=== PATIENT | male | born 1935 | race Caucasian/White ===

== ENCOUNTER 2020-08-09 22:12 | Emergency (ER) | payer MEDICARE, OTHER ==
[~2020-08-09] VITALS: Ht 180.3 cm; Wt 86.4 kg
[2020-08-09 23:29] LABS: BASO # 0.1 10^3/uL (0.0-0.2); BASO % 0.5 % (0.0-1.0); EOS # 0.4 10^3/uL (0.0-0.5); EOS % 3.8 % (0.0-3.0); HEMATOCRIT 40.5 % (42.0-52.0); HEMOGLOBIN 12.9 g/dl (13.5-17.5); LYMPH # 0.9 10^3/uL (1.5-5.0); LYMPH % 9.8 % (24.0-44.0); MEAN CORPUSCULAR HEMOGLOBIN 28.9 pg (27.0-33.0); MEAN CORPUSCULAR HGB CONC 31.9 g/dl (32.0-36.5); MEAN CORPUSCULAR VOLUME 90.6 fl (80.0-96.0); MONO # 1.1 10^3/uL (0.0-0.8); MONO % 11.2 % (0.0-5.0); NEUTROPHILS # 7.2 10^3/uL (1.5-8.5); NEUTROPHILS % 74.4 % (36.0-66.0); PLATELET COUNT, AUTOMATED 126 10^3/uL (150-450); RED BLOOD COUNT 4.47 10^6/uL (4.30-6.10); WHITE BLOOD COUNT 9.6 10^3/uL (4.0-10.0)
[2020-08-09 23:54] LABS: CREATININE FOR GFR 1.39 MG/DL (0.70-1.30); GLOMERULAR FILTRATION RATE 51.7 (>35); POTASSIUM SERUM 4.2 MEQ/L (3.5-5.1)
[2020-08-10 00:33] LABS: APPEARANCE, URINE TURBID (CLEAR); BACTERIA, URINE AUTO 3+ (NEGATIVE); BILIRUBIN, URINE AUTO NEGATIVE (NEGATIVE); BLOOD, URINE BLOOD 1+ (NEGATIVE); COLOR, URINE YELLOW (YELLOW); GLUCOSE, URINE (UA) AUTO NEGATIVE (NEGATIVE); KETONE, URINE AUTO NEGATIVE (NEGATIVE); LEUKOCYTE ESTERASE, URINE AUTO 3+ (NEGATIVE); MUCUS, URINE SMALL (NEGATIVE); NITRITE, URINE AUTO POSITIVE (NEGATIVE); PROTEIN, URINE AUTO 3+ mg/dL (NEGATIVE); RBC, URINE AUTO 81 /HPF (0-3); SPECIFIC GRAVITY URINE AUTO 1.018 (1.002-1.035); SQUAMOUS EPITHELIAL CELL UR AU 0 /HPF (0-6); TRANSITIONAL EPITHELIAL AUTO 3 /HPF; TRIPLE PHOSPHATE CRYSTALS SMALL; UROBILINOGEN, URINE AUTO 0.2 mg/dL (0.0-2.0); WBC, URINE AUTO TNTC /HPF (0-3)
[2020-08-10] MEDS ORDERED: BACTRIM 160MG/800MG DS TAB PO ONE ×2 (00:45)
[2020-08-10] MEDS ORDERED: BACT800T5 PO (00:47)
[2020-08-10] MEDS ORDERED: NYSTATIN 100,000 UNITS/GM TOPICAL PWD 15 GM TOP STA (00:49)
[2020-08-10] MEDS ORDERED: NYST1POW9 TOP (00:51)
[2020-08-10 01:17] VITALS: BP 135/82
[2020-08-13] MEDS ORDERED: KEFL500C17 PO (18:18)
== END 2020-08-10 01:24 | disposition home or self-care (01) ==
LOC: M ED 22:12
DX: N30.90 Cystitis, unspecified without hematuria (principal); T83.198A Other mechanical complication of other urinary devices and implants, initial encounter; X58.XXXA Exposure to other specified factors, initial encounter; Y92.89 Other specified places as the place of occurrence of the external cause; E11.40 Type 2 diabetes mellitus with diabetic neuropathy, unspecified; I10 Essential (primary) hypertension; Z86.14 Personal history of Methicillin resistant Staphylococcus aureus infection; Z87.891 Personal history of nicotine dependence

== ENCOUNTER 2020-08-30 17:36 | Emergency (ER) | payer MEDICARE, OTHER ==
[~2020-08-30] VITALS: Ht 180.3 cm; Wt 88.6 kg
[~2020-08-30 17:36] MED LIST: BACT800T5 PO; CEFD1CAP8 PO; CEPH500C PO; CLEO300C2 PO; DOCU100C16 PO; ECOT81TA5 PO; EQ A1CRE3 TOP; FAMO20TA PO; GABA600T4 PO; GLUC4GMTAB PO; GLYB-147 PO; GLYB25TA PO; HYDR1OI; KEFL500C17 PO; LANTINJ4 SC; LISI-898; LISI-898 PO; LISI2.5T2 PO; LISI2.5T49 PO; MAGN400T5 PO; METF10004 PO; METF500T13 PO; MICO2CRE42 TOP; MULTCAP PO; NYST10OI TOP; NYST1POW9 TOP; RANI15TA PO; SIMV40TA20 PO; VITA-183 PO; VITA100067 PO; ZOCO80TA PO
[2020-08-30] MEDS ORDERED: DOCU100C16 (17:50)
--- OUTSIDE RECORDS SUMMARY | 2020-08-30 21:03 | CCD ---
Author Author [facility] Address Unknown Phone Unavailable Support Name Relationship Address Phone RE Next Of Kin Unknown Unavailable RAJI DOW Next Of Kin [id number] [place] [address] Re-disclosure Warning The records that you are about to access may contain information from federally-assisted alcohol or drug abuse programs. If such information is present, then the following federally mandated warning applies: This information has been disclosed to you from records protected by federal confidentiality rules (42 CFR part 2). The federal rules prohibit you from making any further disclosure of this information unless further disclosure is expressly permitted by the written consent of the person to whom it pertains or as otherwise permitted by 42 CFR part 2. A general authorization for the release of medical or other information is NOT sufficient for this purpose. The Federal rules restrict any use of the information to criminally investigate or prosecute any alcohol or drug abuse patient.The records that you are about to access may contain highly sensitive health information, the redisclosure of which is protected by Article 27-F of the [facility] Public Health law. If you continue you may have access to information: Regarding HIV / AIDS; Provided by facilities licensed or operated by the [facility] Office of Mental Health; or Provided by the [facility] Office for People With Developmental Disabilities. If such information is present, then the following [facility] mandated warning applies: This information has been disclosed to you from confidential records which are protected by state law. State law prohibits you from making any further disclosure of this information without the specific written consent of the person to whom it pertains, or as otherwise permitted by law. Any unauthorized further disclosure in violation of state law may result in a fine or fpc sentence or both. A general authorization for the release of medical or other information is NOT sufficient authorization for further disc losure. Medications Medication Brand Name Start Date Product Form Dose Route Admi nistrative Instructions Pharmacy Instructions Status Indications Reaction Description Data Source(s) Cephalexin 500 MG Oral Capsule CEPHALEXIN 08/13/2020 12:00:00 AM EST capsule 21 TAKE ONE CAPSULE BY MOUTH THREE TIMES A DAY TAKE ONE C APSULE BY MOUTH THREE TIMES A DAY SOLD: 08/14/2020 [facility] Sulfamethoxazole 800 MG / Trimethoprim 160 MG Oral Tab let 800-160 mg SULFAMETHOXAZOLE/TRIMETHOPRIM 08/11/2020 12:00:00 AM EST tablet 17 TAKE ONE TABLET BY MOUTH EVERY 12 HOURS TAKE ONE TABLET BY MOUTH EVERY 12 HOURS SOLD: 08/14/2020 [facility] Nystatin 100 UNT/MG Topical Powder 100,000 unit/gram [place] N 08/11/2020 12:00:00 AM EST powder 15 APPLY TO AFFECTED AREA(S) TWO TIMES A DAY APPLY TO AFFECTED AREA(S) TWO TIMES A DAY SOLD: 08/14/2020 [facility] Insurance Providers Payer name Policy type / Coverage type Policy ID Covered democrat ID Covered democrat's relationship to [place] Policy [place] Plan Information FOR LIFE [id number] MEDICARE [id number]
[2020-08-30 21:43] VITALS: BP 151/78
== END 2020-08-30 21:45 | disposition home or self-care (01) ==
LOC: M ED 17:36 → EDBD 17:36 → M ED 21:45
DX: T83.028A Displacement of other urinary catheter, initial encounter (principal); Y92.9 Unspecified place or not applicable; Y93.9 Activity, unspecified; E11.9 Type 2 diabetes mellitus without complications; Z79.4 Long term (current) use of insulin; Z79.899 Other long term (current) drug therapy

== ENCOUNTER 2021-01-26 02:39 | Emergency (ER) | payer MEDICARE, OTHER ==
[~2021-01-26] VITALS: Ht 177.8 cm; Wt 90.9 kg
[~2021-01-26 02:39] MED LIST changes: +DOCU100C16; +GLYB2.5T7 PO; -GLYB25TA PO
[2021-01-26 05:45] VITALS: BP 141/80
== END 2021-01-26 05:47 | disposition home or self-care (01) ==
LOC: M ED 02:39
DX: R10.9 Unspecified abdominal pain (principal); T83.098A Other mechanical complication of other urinary catheter, initial encounter; X58.XXXA Exposure to other specified factors, initial encounter; Y92.89 Other specified places as the place of occurrence of the external cause; E11.9 Type 2 diabetes mellitus without complications; I10 Essential (primary) hypertension; Z79.899 Other long term (current) drug therapy; Z79.4 Long term (current) use of insulin

== ENCOUNTER 2021-09-26 00:11 | Emergency (ER) | payer MEDICARE, OTHER ==
[~2021-09-26] VITALS: Ht 177.8 cm; Wt 90.9 kg
[~2021-09-26 00:11] MED LIST changes: -CEFD1CAP8 PO; +CEFD300C41 PO; -HYDR1OI; +HYDR28OI8; -LISI-898; -LISI-898 PO; -LISI2.5T2 PO; +LISI2.5T9 PO; +LISI5TAB11; +LISI5TAB11 PO
[2021-09-26] MEDS ORDERED: FAMO1TAB11 (00:20)
[2021-09-26] MEDS ORDERED: ALOG12.5 (00:20)
[2021-09-26] MEDS ORDERED: ZOCO80TA (00:20)
[2021-09-26 01:17] VITALS: BP 134/70
== END 2021-09-26 01:18 | disposition home or self-care (01) ==
LOC: M ED 00:11
DX: T83.198A Other mechanical complication of other urinary devices and implants, initial encounter (principal); I10 Essential (primary) hypertension; E11.9 Type 2 diabetes mellitus without complications; E78.5 Hyperlipidemia, unspecified

== ENCOUNTER 2022-01-30 14:26 | Emergency (ER) | payer MEDICARE, OTHER ==
[~2022-01-30] VITALS: Ht 180.3 cm; Wt 91.0 kg
[~2022-01-30 14:26] MED LIST changes: +ALOG12.5; +FAMO1TAB11; +ZOCO80TA
[2022-01-30 14:36] VITALS: BP 126/75
== END 2022-01-30 15:30 | disposition home or self-care (01) ==
LOC: M ED 14:26
DX: T83.198A Other mechanical complication of other urinary devices and implants, initial encounter (principal); I10 Essential (primary) hypertension; E11.9 Type 2 diabetes mellitus without complications; E78.5 Hyperlipidemia, unspecified; N40.0 Benign prostatic hyperplasia without lower urinary tract symptoms; Z79.4 Long term (current) use of insulin; Z79.899 Other long term (current) drug therapy

== ENCOUNTER 2022-11-29 14:18 | Emergency (ER) | payer MEDICARE, OTHER ==
[~2022-11-29] VITALS: Ht 177.8 cm; Wt 90.9 kg
[~2022-11-29 14:18] MED LIST changes: +HYDR28OI; -HYDR28OI8
[2022-11-29 15:48] VITALS: BP 122/71
== END 2022-11-29 17:06 | disposition home or self-care (01) ==
LOC: EDBD 14:18 → M ED 15:26
DX: R01.1 Cardiac murmur, unspecified (principal); T83.198A Other mechanical complication of other urinary devices and implants, initial encounter; E11.9 Type 2 diabetes mellitus without complications; I10 Essential (primary) hypertension; Z79.4 Long term (current) use of insulin; Z79.899 Other long term (current) drug therapy

== ENCOUNTER 2023-02-05 13:34 | Inpatient (IN) | payer MEDICARE, OTHER ==
[~2023-02-05] VITALS: Ht 180.3 cm; Wt 92.3 kg
[2023-02-05 14:30] LABS: BASO % 0.8 % (0.0-1.0); EOS # 0.5 10^3/uL (0.0-0.5); EOS % 9.7 % (0.0-3.0); HEMOGLOBIN 11.7 g/dl (13.5-17.5); LYMPH # 0.9 10^3/uL (1.5-5.0); LYMPH % 16.7 % (24.0-44.0); MEAN CORPUSCULAR HEMOGLOBIN 28.1 pg (27.0-33.0); MEAN CORPUSCULAR HGB CONC 31.6 g/dl (32.0-36.5); MEAN CORPUSCULAR VOLUME 88.7 fl (80.0-96.0); MONO # 0.6 10^3/uL (0.0-0.8); MONO % 11.6 % (2.0-8.0); NEUTROPHILS # 3.2 10^3/uL (1.5-8.5); NEUTROPHILS % 60.8 % (36.0-66.0); PLATELET COUNT, AUTOMATED 209 10^3/uL (150-450); RED BLOOD COUNT 4.17 10^6/uL (4.30-6.10); WHITE BLOOD COUNT 5.3 10^3/uL (4.0-10.0)
[2023-02-05 14:44] LABS: INR 0.98; PROTHROMBIN TIME 13.2 SECONDS (12.5-14.5)
[2023-02-05 14:45] LABS: PARTIAL THROMBOPLASTIN TIME 29.1 SECONDS (24.8-34.2)
[2023-02-05 15:04] LABS: ALBUMIN 3.6 G/DL (3.2-5.2); BILIRUBIN,DIRECT 0.3 MG/DL (<0.4); BILIRUBIN,TOTAL 0.8 MG/DL (0.3-1.2); CREATININE FOR GFR 1.39 MG/DL (0.70-1.30); GLOMERULAR FILTRATION RATE 51.5 (>35); POTASSIUM SERUM 4.3 MMOL/L (3.5-5.1); TOTAL PROTEIN 6.9 G/DL (5.7-8.2)
[2023-02-05] MEDS ORDERED: ISOVUE-370 76% 100ML VIAL As Ordered ONE (15:47)
[2023-02-05] MEDS ORDERED: GLUCAGON INJ 1MG VIAL SC PRN (18:20)
[2023-02-05] MEDS ORDERED: GLUCOSE 4GM CHEW TABLET PO PRN (18:20)
[2023-02-05] MEDS: MIRALAX *UNIT DOSE* 17GM PACKET PO SCH (20:04)
[2023-02-05] MEDS: SENOKOT S TAB PO SCH (20:04)
[2023-02-05] MEDS: FLEET ENEMA PR SCH ×2 (20:22→21:00)
[2023-02-05] MEDS ORDERED: INSULIN LISPRO (NovoLOG) PER UNIT SC SCH ×2 (21:00)
[2023-02-05] MEDS ORDERED: SENN8.6T28 PO (21:53)
[2023-02-05] MEDS ORDERED: VITMTA PO (21:53)
[2023-02-05] MEDS ORDERED: DEXT4TAB15 PO (21:53)
[2023-02-05] MEDS ORDERED: SIMV40TA20 PO (21:53)
[2023-02-05] MEDS ORDERED: TROS20TA3 PO (21:53)
[2023-02-05] MEDS ORDERED: DOCU100C16 PO (21:53)
[2023-02-05] MEDS ORDERED: FAMO20TA4 PO (21:53)
[2023-02-05] MEDS ORDERED: NESI12.5 PO (21:53)
[2023-02-05] MEDS ORDERED: HOME MED LIST COMPLETE! XX SCH (21:55)
[2023-02-05 22:10] VITALS: BP 155/72; TEMP 97.5; O2SAT 94
[2023-02-05] MEDS: ONDANSETRON 4MG 2ML VIAL IV PRN (23:37)
[2023-02-06] MEDS: D5W/0.45% SODIUM CHLORIDE 1,000 ML IV SCH ×3 (00:11→19:50)
[2023-02-06 05:24] VITALS: BP 152/78; TEMP 98.2; O2SAT 93
[2023-02-06] MEDS: INSULIN LISPRO (NovoLOG) PER UNIT SC SCH ×4 (05:49→18:00)
[2023-02-06] MEDS: HEPARIN SOD (PORCINE) 5000UNITS/ML 1ML VIAL/SYRINGE SC SCH ×3 (05:52→21:55)
[2023-02-06 06:32] LABS: HEMATOCRIT 36.7 % (42.0-52.0); HEMOGLOBIN 11.5 g/dl (13.5-17.5); MEAN CORPUSCULAR HEMOGLOBIN 27.9 pg (27.0-33.0); MEAN CORPUSCULAR HGB CONC 31.3 g/dl (32.0-36.5); MEAN CORPUSCULAR VOLUME 89.1 fl (80.0-96.0); PLATELET COUNT, AUTOMATED 198 10^3/uL (150-450); RED BLOOD COUNT 4.12 10^6/uL (4.30-6.10)
[2023-02-06 07:21] LABS: ALBUMIN 3.3 G/DL (3.2-5.2); BILIRUBIN,TOTAL 0.8 MG/DL (0.3-1.2); CALCIUM LEVEL 8.5 MG/DL (8.3-10.6); CREATININE FOR GFR 1.37 MG/DL (0.70-1.30); GLOMERULAR FILTRATION RATE 52.3 (>35); MAGNESIUM LEVEL 1.7 MG/DL (1.8-2.4); POTASSIUM SERUM 4.7 MMOL/L (3.5-5.1); TOTAL PROTEIN 6.2 G/DL (5.7-8.2)
[2023-02-06] MEDS ORDERED: INSULIN LISPRO (NovoLOG) PER UNIT SC SCH ×2 (07:30)
[2023-02-06] MEDS ORDERED: MAGNESIUM OXIDE 400MG TAB (MAG-OX) PO ONE (08:30)
[2023-02-06] MEDS: SIMVASTATIN 40 MG TAB PO SCH (09:32)
[2023-02-06] MEDS: GABAPENTIN 300 MG CAP PO SCH ×2 (09:32→21:56)
[2023-02-06] MEDS: BISACODYL 5MG TAB PO SCH (09:32)
[2023-02-06] MEDS: FAMOTIDINE 20 MG TAB PO SCH (09:33)
[2023-02-06] MEDS: FLEET ENEMA PR SCH ×4 (09:33→21:57)
[2023-02-06] MEDS: MIRALAX *UNIT DOSE* 17GM PACKET PO SCH ×2 (09:33→21:55)
[2023-02-06] MEDS: SENOKOT S TAB PO SCH ×2 (09:33→21:56)
[2023-02-06 10:23] VITALS: BP 97/65; TEMP 97.9; O2SAT 93
[2023-02-06 10:31] VITALS: BP 104/68
[2023-02-06 14:12] VITALS: BP 103/66; TEMP 98.8; O2SAT 94
[2023-02-06] MEDS: FLEET OIL RETENTION ENEMA PR SCH ×2 (15:33→21:57)
[2023-02-06] MEDS ORDERED: LEVEMIR (INSULIN DETEMIR) 1 UNITS/0.01ML SC SCH (21:00)
[2023-02-06 21:04] VITALS: BP 108/66; TEMP 96.6; O2SAT 94
[2023-02-07 06:00] VITALS: BP 110/53; TEMP 99.3; O2SAT 89
[2023-02-07] MEDS: INSULIN LISPRO (NovoLOG) PER UNIT SC SCH ×5 (06:00→23:40)
[2023-02-07] MEDS: DEXTROSE 50% 50ML SYRINGE IV PRN ×3 (06:09→16:48)
[2023-02-07] MEDS: D5W/0.45% SODIUM CHLORIDE 1,000 ML IV SCH ×2 (06:14→17:27)
[2023-02-07] MEDS: HEPARIN SOD (PORCINE) 5000UNITS/ML 1ML VIAL/SYRINGE SC SCH ×3 (06:34→22:02)
[2023-02-07 06:52] LABS: BASO % 0.3 % (0.0-1.0); EOS % 0.6 % (0.0-3.0); HEMOGLOBIN 10.1 g/dl (13.5-17.5); LYMPH # 0.5 10^3/uL (1.5-5.0); LYMPH % 6.9 % (24.0-44.0); MEAN CORPUSCULAR HEMOGLOBIN 28.1 pg (27.0-33.0); MEAN CORPUSCULAR HGB CONC 31.6 g/dl (32.0-36.5); MEAN CORPUSCULAR VOLUME 89.1 fl (80.0-96.0); MONO # 1.3 10^3/uL (0.0-0.8); MONO % 17.9 % (2.0-8.0); NEUTROPHILS # 5.3 10^3/uL (1.5-8.5); NEUTROPHILS % 74.2 % (36.0-66.0); PLATELET COUNT, AUTOMATED 184 10^3/uL (150-450); RED BLOOD COUNT 3.59 10^6/uL (4.30-6.10); WHITE BLOOD COUNT 7.1 10^3/uL (4.0-10.0)
[2023-02-07 07:11] LABS: CREATININE FOR GFR 1.96 MG/DL (0.70-1.30); GLOMERULAR FILTRATION RATE 34.6 (>35); MAGNESIUM LEVEL 1.8 MG/DL (1.8-2.4)
[2023-02-07] MEDS: GABAPENTIN 300 MG CAP PO SCH ×2 (10:19→22:02)
[2023-02-07] MEDS: MIRALAX *UNIT DOSE* 17GM PACKET PO SCH (10:19)
[2023-02-07] MEDS: BISACODYL 5MG TAB PO SCH (10:20)
[2023-02-07] MEDS: FLEET OIL RETENTION ENEMA PR SCH (10:20)
[2023-02-07] MEDS: FAMOTIDINE 20 MG TAB PO SCH (10:20)
[2023-02-07] MEDS: SIMVASTATIN 40 MG TAB PO SCH (10:20)
[2023-02-07] MEDS: SENOKOT S TAB PO SCH ×2 (10:20→22:01)
[2023-02-07] MEDS: FLEET ENEMA PR SCH (10:20)
[2023-02-07] MEDS: LACTULOSE 20GM/30ML SYRUP UDC PO SCH ×2 (13:34→22:02)
[2023-02-07 14:00] VITALS: BP 96/42; TEMP 99; O2SAT 92
[2023-02-07] MEDS: D10W/0.45% SODIUM CHLORIDE 1,000 ML IV SCH (18:32)
[2023-02-07 20:57] VITALS: BP 141/73; TEMP 98.1; O2SAT 94
[2023-02-08] MEDS: HEPARIN SOD (PORCINE) 5000UNITS/ML 1ML VIAL/SYRINGE SC SCH ×3 (05:55→21:09)
[2023-02-08] MEDS: INSULIN LISPRO (NovoLOG) PER UNIT SC SCH ×4 (05:55→23:42)
[2023-02-08 06:00] VITALS: BP 136/71; TEMP 97.9; O2SAT 94
[2023-02-08] MEDS: D10W/0.45% SODIUM CHLORIDE 1,000 ML IV SCH (06:37)
[2023-02-08 07:15] LABS: BASO % 0.4 % (0.0-1.0); EOS # 0.4 10^3/uL (0.0-0.5); EOS % 5.6 % (0.0-3.0); HEMATOCRIT 33.1 % (42.0-52.0); HEMOGLOBIN 10.3 g/dl (13.5-17.5); LYMPH # 0.9 10^3/uL (1.5-5.0); LYMPH % 11.6 % (24.0-44.0); MEAN CORPUSCULAR HEMOGLOBIN 27.7 pg (27.0-33.0); MEAN CORPUSCULAR HGB CONC 31.1 g/dl (32.0-36.5); MONO # 1.2 10^3/uL (0.0-0.8); MONO % 16.3 % (2.0-8.0); NEUTROPHILS # 4.8 10^3/uL (1.5-8.5); NEUTROPHILS % 65.8 % (36.0-66.0); PLATELET COUNT, AUTOMATED 200 10^3/uL (150-450); RED BLOOD COUNT 3.72 10^6/uL (4.30-6.10); WHITE BLOOD COUNT 7.3 10^3/uL (4.0-10.0)
[2023-02-08 07:38] LABS: CALCIUM LEVEL 8.1 MG/DL (8.3-10.6); CREATININE FOR GFR 1.85 MG/DL (0.70-1.30); MAGNESIUM LEVEL 1.9 MG/DL (1.8-2.4); POTASSIUM SERUM 4.3 MMOL/L (3.5-5.1)
[2023-02-08] MEDS: GABAPENTIN 300 MG CAP PO SCH ×2 (09:49→20:37)
[2023-02-08] MEDS: SENOKOT S TAB PO SCH ×2 (09:49→20:37)
[2023-02-08] MEDS: D5W/0.9% SODIUM CHLORIDE 1,000 ML IV SCH ×2 (09:49→21:09)
[2023-02-08] MEDS: FAMOTIDINE 20 MG TAB PO SCH (09:49)
[2023-02-08] MEDS: LACTULOSE 20GM/30ML SYRUP UDC PO SCH ×2 (09:49→20:36)
[2023-02-08] MEDS: BISACODYL 5MG TAB PO SCH (09:49)
[2023-02-08] MEDS: SIMVASTATIN 40 MG TAB PO SCH (09:49)
[2023-02-08] MEDS: ACETAMINOPHEN TAB 650MG DOSE (2X325MG) PO PRN (09:58)
[2023-02-08 14:00] VITALS: BP 132/69; TEMP 97.2; O2SAT 97
[2023-02-08] MEDS: NYSTATIN 100,000 UNITS/GM TOPICAL PWD 15GM TOP SCH ×2 (15:10→20:37)
[2023-02-08 21:05] VITALS: BP 123/73; TEMP 98.8; O2SAT 94
[2023-02-09 06:00] VITALS: BP 126/72; TEMP 97.9; O2SAT 94
[2023-02-09] MEDS: INSULIN LISPRO (NovoLOG) PER UNIT SC SCH (06:00)
[2023-02-09] MEDS: HEPARIN SOD (PORCINE) 5000UNITS/ML 1ML VIAL/SYRINGE SC SCH ×3 (06:20→20:08)
[2023-02-09 06:27] LABS: BASO % 0.5 % (0.0-1.0); EOS # 0.5 10^3/uL (0.0-0.5); EOS % 8.9 % (0.0-3.0); HEMATOCRIT 31.8 % (42.0-52.0); HEMOGLOBIN 10.1 g/dl (13.5-17.5); LYMPH # 0.8 10^3/uL (1.5-5.0); LYMPH % 12.8 % (24.0-44.0); MEAN CORPUSCULAR HEMOGLOBIN 28.2 pg (27.0-33.0); MEAN CORPUSCULAR HGB CONC 31.8 g/dl (32.0-36.5); MEAN CORPUSCULAR VOLUME 88.8 fl (80.0-96.0); MONO % 16.9 % (2.0-8.0); NEUTROPHILS # 3.6 10^3/uL (1.5-8.5); NEUTROPHILS % 60.6 % (36.0-66.0); PLATELET COUNT, AUTOMATED 192 10^3/uL (150-450); RED BLOOD COUNT 3.58 10^6/uL (4.30-6.10); WHITE BLOOD COUNT 5.9 10^3/uL (4.0-10.0)
[2023-02-09 06:52] LABS: CALCIUM LEVEL 7.7 MG/DL (8.3-10.6); CREATININE FOR GFR 1.61 MG/DL (0.70-1.30); GLOMERULAR FILTRATION RATE 43.4 (>35); MAGNESIUM LEVEL 1.8 MG/DL (1.8-2.4); POTASSIUM SERUM 4.1 MMOL/L (3.5-5.1)
[2023-02-09] MEDS: SIMVASTATIN 40 MG TAB PO SCH (09:53)
[2023-02-09] MEDS: SENOKOT S TAB PO SCH ×2 (09:53→20:09)
[2023-02-09] MEDS: GABAPENTIN 300 MG CAP PO SCH ×2 (09:53→20:09)
[2023-02-09] MEDS: LACTULOSE 20GM/30ML SYRUP UDC PO SCH ×2 (09:54→20:08)
[2023-02-09] MEDS: NYSTATIN 100,000 UNITS/GM TOPICAL PWD 15GM TOP SCH ×2 (09:54→20:09)
[2023-02-09] MEDS: FAMOTIDINE 20 MG TAB PO SCH (09:54)
[2023-02-09] MEDS: BISACODYL 5MG TAB PO SCH (09:54)
[2023-02-09 13:53] VITALS: BP 112/68; TEMP 98.8; O2SAT 96
[2023-02-09 21:14] VITALS: BP 118/62; TEMP 98.4; O2SAT 95
[2023-02-10 06:10] VITALS: BP 120/80; TEMP 97.9; O2SAT 92
[2023-02-10 06:11] LABS: BASO % 0.6 % (0.0-1.0); EOS # 0.4 10^3/uL (0.0-0.5); EOS % 8.3 % (0.0-3.0); HEMATOCRIT 32.4 % (42.0-52.0); HEMOGLOBIN 10.4 g/dl (13.5-17.5); LYMPH # 0.8 10^3/uL (1.5-5.0); LYMPH % 15.4 % (24.0-44.0); MEAN CORPUSCULAR HEMOGLOBIN 28.2 pg (27.0-33.0); MEAN CORPUSCULAR HGB CONC 32.1 g/dl (32.0-36.5); MEAN CORPUSCULAR VOLUME 87.8 fl (80.0-96.0); MONO # 0.8 10^3/uL (0.0-0.8); NEUTROPHILS # 3.2 10^3/uL (1.5-8.5); NEUTROPHILS % 60.3 % (36.0-66.0); PLATELET COUNT, AUTOMATED 222 10^3/uL (150-450); RED BLOOD COUNT 3.69 10^6/uL (4.30-6.10); WHITE BLOOD COUNT 5.3 10^3/uL (4.0-10.0)
[2023-02-10] MEDS: HEPARIN SOD (PORCINE) 5000UNITS/ML 1ML VIAL/SYRINGE SC SCH (06:16)
[2023-02-10 06:33] LABS: CALCIUM LEVEL 7.9 MG/DL (8.3-10.6); CREATININE FOR GFR 1.28 MG/DL (0.70-1.30); GLOMERULAR FILTRATION RATE 56.6 (>35); MAGNESIUM LEVEL 1.7 MG/DL (1.8-2.4); POTASSIUM SERUM 4.2 MMOL/L (3.5-5.1)
[2023-02-10] MEDS ORDERED: MAG SULF 1GM/100ML (MAG RUN) 1 GM in IV 1 EA IV ONE (08:00)
[2023-02-10] MEDS: SIMVASTATIN 40 MG TAB PO SCH (08:48)
[2023-02-10] MEDS: MAGNESIUM OXIDE 400MG TAB (MAG-OX) PO SCH (08:48)
[2023-02-10] MEDS: LACTULOSE 20GM/30ML SYRUP UDC PO SCH ×2 (08:48→20:25)
[2023-02-10] MEDS: SENOKOT S TAB PO SCH ×2 (08:48→20:25)
[2023-02-10] MEDS: GABAPENTIN 300 MG CAP PO SCH ×2 (08:48→20:25)
[2023-02-10] MEDS: BISACODYL 5MG TAB PO SCH (08:48)
[2023-02-10] MEDS: FAMOTIDINE 20 MG TAB PO SCH (08:49)
[2023-02-10] MEDS: NYSTATIN 100,000 UNITS/GM TOPICAL PWD 15GM TOP SCH ×2 (08:49→20:30)
[2023-02-10] MEDS: MOM 30ML SUSPENSION UDC PO SCH ×2 (09:00→20:25)
[2023-02-10 14:00] VITALS: BP 101/64; TEMP 97.5; O2SAT 91
[2023-02-10] MEDS ORDERED: ENOXAPARIN 40MG/0.4ML SYRINGE (J1650 PER 10MG) SC SCH (14:00)
[2023-02-10 20:13] VITALS: BP 95/65; TEMP 98.8; O2SAT 92
[2023-02-11] MEDS ORDERED: ENOXAPARIN 100MG/1ML SYRINGE (J1650 PER 10MG) SC SCH (03:00)
[2023-02-11 06:17] VITALS: BP 117/71; TEMP 98.4; O2SAT 93
[2023-02-11 06:27] LABS: BASO % 0.4 % (0.0-1.0); EOS # 0.3 10^3/uL (0.0-0.5); EOS % 5.5 % (0.0-3.0); HEMATOCRIT 32.1 % (42.0-52.0); HEMOGLOBIN 10.3 g/dl (13.5-17.5); LYMPH # 0.8 10^3/uL (1.5-5.0); LYMPH % 15.8 % (24.0-44.0); MEAN CORPUSCULAR HEMOGLOBIN 27.9 pg (27.0-33.0); MEAN CORPUSCULAR HGB CONC 32.1 g/dl (32.0-36.5); MONO # 0.9 10^3/uL (0.0-0.8); MONO % 17.7 % (2.0-8.0); NEUTROPHILS # 3.2 10^3/uL (1.5-8.5); NEUTROPHILS % 60.2 % (36.0-66.0); PLATELET COUNT, AUTOMATED 238 10^3/uL (150-450); RED BLOOD COUNT 3.69 10^6/uL (4.30-6.10); WHITE BLOOD COUNT 5.3 10^3/uL (4.0-10.0)
[2023-02-11 06:41] LABS: CREATININE FOR GFR 1.28 MG/DL (0.70-1.30); GLOMERULAR FILTRATION RATE 56.6 (>35); MAGNESIUM LEVEL 2.2 MG/DL (1.8-2.4); POTASSIUM SERUM 4.5 MMOL/L (3.5-5.1)
[2023-02-11] MEDS: MAGNESIUM OXIDE 400MG TAB (MAG-OX) PO SCH (08:33)
[2023-02-11] MEDS: GABAPENTIN 300 MG CAP PO SCH ×3 (08:33→21:55)
[2023-02-11] MEDS: FAMOTIDINE 20 MG TAB PO SCH (08:33)
[2023-02-11] MEDS: SENOKOT S TAB PO SCH ×2 (08:33→20:30)
[2023-02-11] MEDS: LACTULOSE 20GM/30ML SYRUP UDC PO SCH ×2 (08:33→20:31)
[2023-02-11] MEDS: SIMVASTATIN 40 MG TAB PO SCH (08:33)
[2023-02-11] MEDS: MOM 30ML SUSPENSION UDC PO SCH ×2 (08:33→20:30)
[2023-02-11] MEDS: BISACODYL 5MG TAB PO SCH (08:33)
[2023-02-11] MEDS: NYSTATIN 100,000 UNITS/GM TOPICAL PWD 15GM TOP SCH ×2 (08:34→20:31)
[2023-02-11] MEDS: ACETAMINOPHEN TAB 650MG DOSE (2X325MG) PO PRN (12:37)
[2023-02-11 14:00] VITALS: BP 117/70; TEMP 98.4; O2SAT 94
[2023-02-11] MEDS ORDERED: MORPHINE 2 MG/ML 1ML VIAL IV ONE ×2 (14:15→15:30)
[2023-02-11] MEDS ORDERED: ISOVUE-370 76% 100ML VIAL As Ordered ONE (15:54)
[2023-02-11] MEDS: PANTOPRAZOLE 40MG VIAL IV SCH (16:50)
[2023-02-11] MEDS ORDERED: MORPHINE 2 MG/ML 1ML VIAL IV PRN (17:30)
[2023-02-11] MEDS: D5W/0.9% SODIUM CHLORIDE 1,000 ML IV SCH (17:34)
[2023-02-11 18:47] LABS: BASO % 0.1 % (0.0-1.0); HEMATOCRIT 27.1 % (42.0-52.0); HEMOGLOBIN 8.7 g/dl (13.5-17.5); LYMPH # 0.4 10^3/uL (1.5-5.0); LYMPH % 5.6 % (24.0-44.0); MEAN CORPUSCULAR HEMOGLOBIN 28.3 pg (27.0-33.0); MEAN CORPUSCULAR HGB CONC 32.1 g/dl (32.0-36.5); MEAN CORPUSCULAR VOLUME 88.3 fl (80.0-96.0); MONO # 0.8 10^3/uL (0.0-0.8); NEUTROPHILS # 6.3 10^3/uL (1.5-8.5); NEUTROPHILS % 82.9 % (36.0-66.0); PLATELET COUNT, AUTOMATED 231 10^3/uL (150-450); RED BLOOD COUNT 3.07 10^6/uL (4.30-6.10); WHITE BLOOD COUNT 7.6 10^3/uL (4.0-10.0)
[2023-02-11 18:55] LABS: CALCIUM LEVEL 8.6 MG/DL (8.3-10.6); CREATININE FOR GFR 1.31 MG/DL (0.70-1.30); GLOMERULAR FILTRATION RATE 55.1 (>35); POTASSIUM SERUM 5.2 MMOL/L (3.5-5.1)
[2023-02-11] MEDS: PIPERACILLIN/TAZOBACTAM SOD 3.375 GM in D5W MINI-BAG PLUS 50 ML IV SCH (20:30)
[2023-02-11] MEDS ORDERED: SOD POLYSTYRENE SULFONATE SUSP 15GM 60ML UD PO ONE (20:35)
[2023-02-11 20:58] VITALS: BP 117/71; TEMP 98.4; O2SAT 93
[2023-02-12] VITALS (13 sets, daily range): BP systolic 106–139; BP diastolic 53–91; TEMP 98.1–99.3; O2SAT 89–94
[2023-02-12 00:56] LABS: HEMATOCRIT 27.6 % (42.0-52.0); HEMOGLOBIN 8.8 g/dl (13.5-17.5)
[2023-02-12 01:10] LABS: CALCIUM LEVEL 8.8 MG/DL (8.3-10.6); CREATININE FOR GFR 1.47 MG/DL (0.70-1.30); GLOMERULAR FILTRATION RATE 48.2 (>35); POTASSIUM SERUM 5.2 MMOL/L (3.5-5.1)
[2023-02-12] MEDS: PIPERACILLIN/TAZOBACTAM SOD 3.375 GM in D5W MINI-BAG PLUS 50 ML IV SCH ×3 (02:22→13:11)
[2023-02-12 05:53] LABS: BASO % 0.3 % (0.0-1.0); EOS % 0.1 % (0.0-3.0); HEMATOCRIT 26.4 % (42.0-52.0); HEMOGLOBIN 8.4 g/dl (13.5-17.5); LYMPH # 0.8 10^3/uL (1.5-5.0); LYMPH % 9.7 % (24.0-44.0); MEAN CORPUSCULAR HEMOGLOBIN 28.2 pg (27.0-33.0); MEAN CORPUSCULAR HGB CONC 31.8 g/dl (32.0-36.5); MEAN CORPUSCULAR VOLUME 88.6 fl (80.0-96.0); MONO # 1.4 10^3/uL (0.0-0.8); MONO % 17.5 % (2.0-8.0); NEUTROPHILS # 5.7 10^3/uL (1.5-8.5); NEUTROPHILS % 71.9 % (36.0-66.0); PLATELET COUNT, AUTOMATED 252 10^3/uL (150-450); RED BLOOD COUNT 2.98 10^6/uL (4.30-6.10); WHITE BLOOD COUNT 7.9 10^3/uL (4.0-10.0)
[2023-02-12 06:10] LABS: CALCIUM LEVEL 8.5 MG/DL (8.3-10.6); CREATININE FOR GFR 1.54 MG/DL (0.70-1.30); GLOMERULAR FILTRATION RATE 45.7 (>35); MAGNESIUM LEVEL 2.4 MG/DL (1.8-2.4)
[2023-02-12 06:56] LABS: ALBUMIN 2.6 G/DL (3.2-5.2); BILIRUBIN,TOTAL 0.6 MG/DL (0.3-1.2); TOTAL PROTEIN 5.7 G/DL (5.7-8.2)
[2023-02-12] MEDS: D5W/0.9% SODIUM CHLORIDE 1,000 ML IV SCH (07:52)
[2023-02-12] MEDS: METOCLOPRAMIDE INJ 10MG/2ML VIAL IV SCH ×3 (07:52→21:02)
[2023-02-12] MEDS: FAMOTIDINE 20 MG TAB PO SCH (08:27)
[2023-02-12] MEDS: GABAPENTIN 300 MG CAP PO SCH (08:27)
[2023-02-12] MEDS: BISACODYL 5MG TAB PO SCH (08:28)
[2023-02-12] MEDS ORDERED: NS 1,000 ML IV ONE (08:45)
[2023-02-12] MEDS ORDERED: LR 1,000 ML IV SCH (08:45)
[2023-02-12] MEDS: MOM 30ML SUSPENSION UDC PO SCH ×2 (09:14→21:03)
[2023-02-12] MEDS: SENOKOT S TAB PO SCH ×2 (09:15→21:03)
[2023-02-12] MEDS: LACTULOSE 20GM/30ML SYRUP UDC PO SCH ×2 (09:15→21:03)
[2023-02-12] MEDS: NYSTATIN 100,000 UNITS/GM TOPICAL PWD 15GM TOP SCH ×2 (09:15→21:04)
[2023-02-12 13:01] LABS: HEMATOCRIT 25.5 % (42.0-52.0); HEMOGLOBIN 8.1 g/dl (13.5-17.5)
[2023-02-12 15:28] LABS: ABG BASE EXCESS 5.2 (-2.0-2.0); ABG HCO3 28.4 MMOL/L (22.0-26.0); ABG O2 SATURATION 91.5 % (95.0-99.0); ABG PARTIAL PRESSURE CO2 35.9 mmHg (35.0-45.0); ABG PARTIAL PRESSURE O2 56.3 mmHg (75.0-100.0); ABG STANDARD HCO3 29.1 MMOL/L. (22.0-26.0); ABG TOTAL CO2 29.5 MMOL/L (23.0-31.0); ABG pH (ARTERIAL) 7.516 UNITS (7.350-7.450)
[2023-02-12] MEDS ORDERED: FUROSEMIDE 40MG/4ML VIAL IV ONE (15:55)
[2023-02-12] MEDS: PANTOPRAZOLE 40MG VIAL IV SCH (16:11)
[2023-02-12] MEDS: PIPERACILLIN/TAZOBACTAM SOD 2.25 GM in D5W MINI-BAG PLUS 50 ML IV SCH (21:02)
[2023-02-13 00:40] VITALS: BP 128/75; TEMP 99.1; O2SAT 92
[2023-02-13 02:00] LABS: CALCIUM LEVEL 7.4 MG/DL (8.3-10.6); CREATININE FOR GFR 1.66 MG/DL (0.70-1.30); GLOMERULAR FILTRATION RATE 41.9 (>35); POTASSIUM SERUM 4.3 MMOL/L (3.5-5.1)
[2023-02-13] MEDS: METOCLOPRAMIDE INJ 10MG/2ML VIAL IV SCH ×4 (02:14→21:32)
[2023-02-13] MEDS: PIPERACILLIN/TAZOBACTAM SOD 2.25 GM in D5W MINI-BAG PLUS 50 ML IV SCH ×4 (02:14→21:10)
[2023-02-13 02:29] LABS: BASO % 0.5 % (0.0-1.0); EOS # 0.1 10^3/uL (0.0-0.5); EOS % 1.1 % (0.0-3.0); HEMOGLOBIN 9.1 g/dl (13.5-17.5); LYMPH % 11.4 % (24.0-44.0); MEAN CORPUSCULAR HEMOGLOBIN 28.2 pg (27.0-33.0); MEAN CORPUSCULAR HGB CONC 32.5 g/dl (32.0-36.5); MEAN CORPUSCULAR VOLUME 86.7 fl (80.0-96.0); MONO # 1.4 10^3/uL (0.0-0.8); MONO % 16.7 % (2.0-8.0); NEUTROPHILS # 5.7 10^3/uL (1.5-8.5); NEUTROPHILS % 68.9 % (36.0-66.0); PLATELET COUNT, AUTOMATED 222 10^3/uL (150-450); RED BLOOD COUNT 3.23 10^6/uL (4.30-6.10); WHITE BLOOD COUNT 8.3 10^3/uL (4.0-10.0)
[2023-02-13 06:53] LABS: CALCIUM LEVEL 8.1 MG/DL (8.3-10.6); CREATININE FOR GFR 1.67 MG/DL (0.70-1.30); GLOMERULAR FILTRATION RATE 41.6 (>35); MAGNESIUM LEVEL 2.3 MG/DL (1.8-2.4); POTASSIUM SERUM 4.2 MMOL/L (3.5-5.1)
[2023-02-13] MEDS: MOM 30ML SUSPENSION UDC PO SCH ×2 (09:46→21:31)
[2023-02-13] MEDS: BISACODYL 5MG TAB PO SCH (09:47)
[2023-02-13] MEDS: SENOKOT S TAB PO SCH ×2 (09:47→21:31)
[2023-02-13] MEDS: NYSTATIN 100,000 UNITS/GM TOPICAL PWD 15GM TOP SCH ×2 (09:47→21:32)
[2023-02-13] MEDS: LACTULOSE 20GM/30ML SYRUP UDC PO SCH ×2 (09:47→21:31)
[2023-02-13 14:00] VITALS: BP 122/67; TEMP 97.3; O2SAT 99
[2023-02-13] MEDS: INSULIN LISPRO (NovoLOG) PER UNIT SC SCH (18:00)
[2023-02-13] MEDS ORDERED: FAT EMULSION IV 250 ML IV ONE ×2 (18:00)
[2023-02-13] MEDS ORDERED: MULTIVITAMIN -ADULT INJECTION 10 ML, ZINC/COPPER/MANGANESE/SELENIUM 1 ML in AMINO AC/EL... IV SCH (18:00)
[2023-02-13] MEDS: PANTOPRAZOLE 40MG VIAL IV SCH (18:01)
[2023-02-13 21:25] VITALS: BP 127/75; TEMP 96.8; O2SAT 94
[2023-02-13] MEDS: AMINO AC/ELECTROLYTE/DEX/CALC 1,000 ML IV SCH (22:08)
[2023-02-14] MEDS: INSULIN LISPRO (NovoLOG) PER UNIT SC SCH ×4 (00:10→18:24)
[2023-02-14] MEDS: PIPERACILLIN/TAZOBACTAM SOD 2.25 GM in D5W MINI-BAG PLUS 50 ML IV SCH ×4 (01:56→20:49)
[2023-02-14] MEDS: METOCLOPRAMIDE INJ 10MG/2ML VIAL IV SCH ×4 (01:56→20:49)
[2023-02-14 06:00] VITALS: BP 133/73; TEMP 98.8; O2SAT 94
[2023-02-14 06:49] LABS: MAGNESIUM LEVEL 2.2 MG/DL (1.8-2.4)
[2023-02-14] MEDS: AMINO AC/ELECTROLYTE/DEX/CALC 1,000 ML IV SCH ×2 (07:20→19:00)
[2023-02-14 07:47] LABS: CALCIUM LEVEL 8.2 MG/DL (8.3-10.6); CREATININE FOR GFR 1.44 MG/DL (0.70-1.30); GLOMERULAR FILTRATION RATE 49.4 (>35)
[2023-02-14] MEDS ORDERED: MAGNESIUM CITRATE 300ML BTL PO ONE (08:20)
[2023-02-14] MEDS: MOM 30ML SUSPENSION UDC PO SCH ×2 (09:00→22:13)
[2023-02-14] MEDS: LACTULOSE 20GM/30ML SYRUP UDC PO SCH ×2 (09:00→22:13)
[2023-02-14] MEDS: SENOKOT S TAB PO SCH ×2 (09:00→22:13)
[2023-02-14] MEDS: BISACODYL 5MG TAB PO SCH (09:00)
[2023-02-14] MEDS: NYSTATIN 100,000 UNITS/GM TOPICAL PWD 15GM TOP SCH ×2 (09:00→22:14)
[2023-02-14] MEDS: ONDANSETRON 4MG 2ML VIAL IV PRN (10:46)
[2023-02-14 15:00] VITALS: BP 129/65; TEMP 101.8; O2SAT 93
[2023-02-14 16:33] LABS: BASO % 0.3 % (0.0-1.0); EOS # 0.1 10^3/uL (0.0-0.5); EOS % 1.5 % (0.0-3.0); HEMATOCRIT 31.8 % (42.0-52.0); HEMOGLOBIN 10.1 g/dl (13.5-17.5); LYMPH # 0.5 10^3/uL (1.5-5.0); LYMPH % 8.5 % (24.0-44.0); MEAN CORPUSCULAR HEMOGLOBIN 28.1 pg (27.0-33.0); MEAN CORPUSCULAR HGB CONC 31.8 g/dl (32.0-36.5); MEAN CORPUSCULAR VOLUME 88.6 fl (80.0-96.0); MONO # 1.1 10^3/uL (0.0-0.8); MONO % 18.1 % (2.0-8.0); NEUTROPHILS # 4.2 10^3/uL (1.5-8.5); NEUTROPHILS % 68.8 % (36.0-66.0); PLATELET COUNT, AUTOMATED 255 10^3/uL (150-450); RED BLOOD COUNT 3.59 10^6/uL (4.30-6.10); WHITE BLOOD COUNT 6.1 10^3/uL (4.0-10.0)
[2023-02-14] MEDS: PANTOPRAZOLE 40MG VIAL IV SCH (16:49)
[2023-02-14 17:12] VITALS: TEMP 100.2; O2SAT 93
[2023-02-14] MEDS ORDERED: FAT EMULSION IV 250 ML IV ONE (18:00)
[2023-02-14 22:00] VITALS: BP 132/66; TEMP 99.7; O2SAT 94
[2023-02-15] MEDS: INSULIN LISPRO (NovoLOG) PER UNIT SC SCH ×4 (00:20→18:56)
[2023-02-15] MEDS: METOCLOPRAMIDE INJ 10MG/2ML VIAL IV SCH ×4 (02:17→18:34)
[2023-02-15] MEDS: PIPERACILLIN/TAZOBACTAM SOD 2.25 GM in D5W MINI-BAG PLUS 50 ML IV SCH (02:17)
[2023-02-15 06:00] VITALS: BP 148/85; TEMP 98.2; O2SAT 95
[2023-02-15 06:27] LABS: BASO % 0.5 % (0.0-1.0); EOS # 0.1 10^3/uL (0.0-0.5); EOS % 1.5 % (0.0-3.0); HEMATOCRIT 29.7 % (42.0-52.0); HEMOGLOBIN 9.5 g/dl (13.5-17.5); LYMPH # 0.6 10^3/uL (1.5-5.0); LYMPH % 9.4 % (24.0-44.0); MEAN CORPUSCULAR HEMOGLOBIN 28.4 pg (27.0-33.0); MEAN CORPUSCULAR VOLUME 88.7 fl (80.0-96.0); MONO # 1.1 10^3/uL (0.0-0.8); MONO % 18.3 % (2.0-8.0); NEUTROPHILS % 67.4 % (36.0-66.0); PLATELET COUNT, AUTOMATED 232 10^3/uL (150-450); RED BLOOD COUNT 3.35 10^6/uL (4.30-6.10); WHITE BLOOD COUNT 5.9 10^3/uL (4.0-10.0)
[2023-02-15] MEDS: AMINO AC/ELECTROLYTE/DEX/CALC 1,000 ML IV SCH ×2 (06:43→18:36)
[2023-02-15 06:58] LABS: CALCIUM LEVEL 8.1 MG/DL (8.3-10.6); CREATININE FOR GFR 1.29 MG/DL (0.70-1.30); GLOMERULAR FILTRATION RATE 56.1 (>35); POTASSIUM SERUM 4.1 MMOL/L (3.5-5.1)
[2023-02-15] MEDS: LACTULOSE 20GM/30ML SYRUP UDC PO SCH ×2 (09:37→20:56)
[2023-02-15] MEDS: BISACODYL 5MG TAB PO SCH (09:37)
[2023-02-15] MEDS: MOM 30ML SUSPENSION UDC PO SCH ×2 (09:37→20:56)
[2023-02-15] MEDS: PIPERACILLIN/TAZOBACTAM SOD 3.375 GM in D5W MINI-BAG PLUS 50 ML IV SCH ×3 (09:37→18:35)
[2023-02-15] MEDS: SENOKOT S TAB PO SCH ×2 (09:38→20:56)
[2023-02-15] MEDS: NYSTATIN 100,000 UNITS/GM TOPICAL PWD 15GM TOP SCH ×2 (09:38→20:56)
[2023-02-15 14:00] VITALS: BP 112/60; TEMP 98.2; O2SAT 98
[2023-02-15] MEDS ORDERED: FAT EMULSION IV 250 ML IV ONE (18:00)
[2023-02-15] MEDS: PANTOPRAZOLE 40MG VIAL IV SCH (18:34)
[2023-02-15 21:37] VITALS: BP 96/44; TEMP 98.8; O2SAT 95
[2023-02-15] MEDS ORDERED: NS 500 ML IV ONE (22:10)
[2023-02-15 23:04] VITALS: BP 106/64
[2023-02-16] MEDS: INSULIN LISPRO (NovoLOG) PER UNIT SC SCH ×3 (00:28→12:21)
[2023-02-16] MEDS: PIPERACILLIN/TAZOBACTAM SOD 3.375 GM in D5W MINI-BAG PLUS 50 ML IV SCH ×4 (02:28→21:49)
[2023-02-16] MEDS: METOCLOPRAMIDE INJ 10MG/2ML VIAL IV SCH ×4 (02:28→21:49)
[2023-02-16 06:09] LABS: BASO % 0.5 % (0.0-1.0); EOS # 0.2 10^3/uL (0.0-0.5); EOS % 3.3 % (0.0-3.0); HEMATOCRIT 30.6 % (42.0-52.0); HEMOGLOBIN 9.6 g/dl (13.5-17.5); LYMPH # 0.7 10^3/uL (1.5-5.0); LYMPH % 11.1 % (24.0-44.0); MEAN CORPUSCULAR HEMOGLOBIN 27.7 pg (27.0-33.0); MEAN CORPUSCULAR HGB CONC 31.4 g/dl (32.0-36.5); MEAN CORPUSCULAR VOLUME 88.2 fl (80.0-96.0); MONO % 17.1 % (2.0-8.0); NEUTROPHILS % 65.8 % (36.0-66.0); PLATELET COUNT, AUTOMATED 230 10^3/uL (150-450); RED BLOOD COUNT 3.47 10^6/uL (4.30-6.10)
[2023-02-16 06:15] LABS: CALCIUM LEVEL 7.7 MG/DL (8.3-10.6); CREATININE FOR GFR 1.26 MG/DL (0.70-1.30); GLOMERULAR FILTRATION RATE 57.6 (>35); POTASSIUM SERUM 3.9 MMOL/L (3.5-5.1)
[2023-02-16] MEDS: LACTULOSE 20GM/30ML SYRUP UDC PO SCH ×2 (08:53→21:48)
[2023-02-16] MEDS: BISACODYL 5MG TAB PO SCH (08:53)
[2023-02-16] MEDS: MOM 30ML SUSPENSION UDC PO SCH ×2 (08:53→21:48)
[2023-02-16] MEDS: AMINO AC/ELECTROLYTE/DEX/CALC 1,000 ML IV SCH ×2 (08:54→21:37)
[2023-02-16] MEDS: SENOKOT S TAB PO SCH ×2 (08:54→21:49)
[2023-02-16] MEDS: NYSTATIN 100,000 UNITS/GM TOPICAL PWD 15GM TOP SCH ×2 (08:54→21:50)
[2023-02-16] MEDS: GABAPENTIN 300 MG CAP PO SCH ×2 (09:45→21:49)
[2023-02-16] MEDS: SIMVASTATIN 40 MG TAB PO SCH (09:45)
[2023-02-16 14:00] VITALS: BP 128/80; TEMP 97.9; O2SAT 97
[2023-02-16] MEDS: PANTOPRAZOLE 40MG VIAL IV SCH (17:31)
[2023-02-16] MEDS ORDERED: FAT EMULSION IV 250 ML IV ONE (18:00)
[2023-02-16 21:25] VITALS: BP 136/76; TEMP 97.9; O2SAT 96
[2023-02-17] MEDS: INSULIN LISPRO (NovoLOG) PER UNIT SC SCH ×4 (00:40→17:24)
[2023-02-17] MEDS: PIPERACILLIN/TAZOBACTAM SOD 3.375 GM in D5W MINI-BAG PLUS 50 ML IV SCH ×4 (03:03→22:18)
[2023-02-17] MEDS: METOCLOPRAMIDE INJ 10MG/2ML VIAL IV SCH ×4 (03:03→22:18)
[2023-02-17 06:19] VITALS: BP 132/76; TEMP 98.2; O2SAT 95
[2023-02-17 07:33] LABS: BASO % 0.4 % (0.0-1.0); EOS # 0.3 10^3/uL (0.0-0.5); HEMATOCRIT 31.5 % (42.0-52.0); HEMOGLOBIN 10.1 g/dl (13.5-17.5); LYMPH # 0.5 10^3/uL (1.5-5.0); LYMPH % 7.8 % (24.0-44.0); MEAN CORPUSCULAR HEMOGLOBIN 28.5 pg (27.0-33.0); MEAN CORPUSCULAR HGB CONC 32.1 g/dl (32.0-36.5); MEAN CORPUSCULAR VOLUME 88.7 fl (80.0-96.0); MONO # 0.8 10^3/uL (0.0-0.8); MONO % 11.1 % (2.0-8.0); NEUTROPHILS # 5.2 10^3/uL (1.5-8.5); NEUTROPHILS % 75.3 % (36.0-66.0); PLATELET COUNT, AUTOMATED 228 10^3/uL (150-450); RED BLOOD COUNT 3.55 10^6/uL (4.30-6.10); WHITE BLOOD COUNT 6.9 10^3/uL (4.0-10.0)
[2023-02-17] MEDS: MOM 30ML SUSPENSION UDC PO SCH ×2 (08:15→22:18)
[2023-02-17] MEDS: LACTULOSE 20GM/30ML SYRUP UDC PO SCH ×2 (08:15→22:19)
[2023-02-17] MEDS: GABAPENTIN 300 MG CAP PO SCH ×2 (08:19→21:00)
[2023-02-17] MEDS: BISACODYL 5MG TAB PO SCH (08:19)
[2023-02-17] MEDS: SENOKOT S TAB PO SCH ×2 (08:19→22:18)
[2023-02-17] MEDS: SIMVASTATIN 40 MG TAB PO SCH (08:19)
[2023-02-17] MEDS: NYSTATIN 100,000 UNITS/GM TOPICAL PWD 15GM TOP SCH ×2 (08:19→22:19)
[2023-02-17 08:22] LABS: CALCIUM LEVEL 8.5 MG/DL (8.3-10.6); CREATININE FOR GFR 1.32 MG/DL (0.70-1.30); GLOMERULAR FILTRATION RATE 54.6 (>35); POTASSIUM SERUM 4.4 MMOL/L (3.5-5.1)
[2023-02-17] MEDS: AMINO AC/ELECTROLYTE/DEX/CALC 1,000 ML IV SCH ×2 (11:01→23:52)
[2023-02-17 11:51] LABS: HEMOGLOBIN A1c 6.5 % (4.0-6.0)
[2023-02-17] MEDS ORDERED: SODIUM CHLORIDE 3% 240 ML IV SCH (13:00)
[2023-02-17] MEDS: SIMETHICONE 80MG CHEW TAB PO SCH ×3 (13:52→22:18)
[2023-02-17 14:00] VITALS: BP 152/85; TEMP 97.7; O2SAT 96
[2023-02-17] MEDS: PANTOPRAZOLE 40MG VIAL IV SCH (17:23)
[2023-02-17] MEDS ORDERED: FAT EMULSION IV 250 ML IV ONE (18:00)
[2023-02-17 18:16] LABS: OSMOLALITY URINE 332 MOSM/KG (50-1400)
[2023-02-17 18:51] LABS: SODIUM,RANDOM URINE < 10 MMOL/L
[2023-02-17 19:25] LABS: CALCIUM LEVEL 7.7 MG/DL (8.3-10.6); CREATININE FOR GFR 1.26 MG/DL (0.70-1.30); GLOMERULAR FILTRATION RATE 57.6 (>35); POTASSIUM SERUM 4.5 MMOL/L (3.5-5.1)
[2023-02-17 22:00] VITALS: BP 147/85; TEMP 97.5; O2SAT 97
[2023-02-17 22:57] LABS: CALCIUM LEVEL 7.7 MG/DL (8.3-10.6); CREATININE FOR GFR 1.24 MG/DL (0.70-1.30); GLOMERULAR FILTRATION RATE 58.7 (>35); POTASSIUM SERUM 4.4 MMOL/L (3.5-5.1)
[2023-02-18] MEDS: INSULIN LISPRO (NovoLOG) PER UNIT SC SCH ×4 (01:15→18:00)
[2023-02-18] MEDS: METOCLOPRAMIDE INJ 10MG/2ML VIAL IV SCH ×3 (02:27→15:44)
[2023-02-18 06:00] VITALS: BP 144/85; TEMP 98.4; O2SAT 92
[2023-02-18 06:12] LABS: BASO % 0.5 % (0.0-1.0); EOS # 0.2 10^3/uL (0.0-0.5); EOS % 2.3 % (0.0-3.0); HEMATOCRIT 33.3 % (42.0-52.0); HEMOGLOBIN 10.5 g/dl (13.5-17.5); LYMPH # 0.6 10^3/uL (1.5-5.0); LYMPH % 7.4 % (24.0-44.0); MEAN CORPUSCULAR HEMOGLOBIN 27.9 pg (27.0-33.0); MEAN CORPUSCULAR HGB CONC 31.5 g/dl (32.0-36.5); MEAN CORPUSCULAR VOLUME 88.3 fl (80.0-96.0); MONO # 0.9 10^3/uL (0.0-0.8); MONO % 10.6 % (2.0-8.0); NEUTROPHILS # 6.6 10^3/uL (1.5-8.5); NEUTROPHILS % 77.8 % (36.0-66.0); PLATELET COUNT, AUTOMATED 258 10^3/uL (150-450); RED BLOOD COUNT 3.77 10^6/uL (4.30-6.10); WHITE BLOOD COUNT 8.4 10^3/uL (4.0-10.0)
[2023-02-18 06:40] LABS: CALCIUM LEVEL 7.9 MG/DL (8.3-10.6); CREATININE FOR GFR 1.25 MG/DL (0.70-1.30); GLOMERULAR FILTRATION RATE 58.2 (>35); POTASSIUM SERUM 4.6 MMOL/L (3.5-5.1)
[2023-02-18] MEDS: BISACODYL 5MG TAB PO SCH (08:02)
[2023-02-18] MEDS: MOM 30ML SUSPENSION UDC PO SCH (08:02)
[2023-02-18] MEDS: SIMETHICONE 80MG CHEW TAB PO SCH ×3 (08:02→15:44)
[2023-02-18] MEDS: GABAPENTIN 300 MG CAP PO SCH (08:02)
[2023-02-18] MEDS: SIMVASTATIN 40 MG TAB PO SCH (08:02)
[2023-02-18] MEDS: LACTULOSE 20GM/30ML SYRUP UDC PO SCH (08:02)
[2023-02-18] MEDS: SENOKOT S TAB PO SCH (08:02)
[2023-02-18] MEDS: NYSTATIN 100,000 UNITS/GM TOPICAL PWD 15GM TOP SCH (08:04)
[2023-02-18] MEDS ORDERED: FUROSEMIDE 40MG/4ML VIAL IV ONE (10:55)
[2023-02-18] MEDS ORDERED: SODIUM CHLORIDE 3% 500 ML IV SCH (12:00)
[2023-02-18] MEDS ORDERED: LIDOCAINE 1% MDV 20ML VIAL As Ordered ONE (12:14)
[2023-02-18 14:00] VITALS: BP 135/79; TEMP 97.5; O2SAT 94
[2023-02-18 14:38] LABS: CALCIUM LEVEL 8.6 MG/DL (8.3-10.6); CREATININE FOR GFR 1.33 MG/DL (0.70-1.30); GLOMERULAR FILTRATION RATE 54.1 (>35); POTASSIUM SERUM 4.7 MMOL/L (3.5-5.1)
[2023-02-18] MEDS ORDERED: SIMETHICONE 40MG/0.6ML DROPS 30ML XX PRN (14:45)
[2023-02-18] MEDS: PANTOPRAZOLE 40MG VIAL IV SCH (15:44)
[2023-02-18] MEDS ORDERED: LACT20EL PO (18:23)
[2023-02-18] MEDS ORDERED: INSUHUMDS SC (18:23)
[2023-02-18] MEDS ORDERED: METOCLOPRAMIDE INJection IV (18:23)
[2023-02-18] MEDS ORDERED: SENN-52 PO (18:23)
[2023-02-18] MEDS ORDERED: MOM30SS2 PO (18:23)
[2023-02-18] MEDS ORDERED: ACET1TAB55 PO (18:23)
[2023-02-18] MEDS ORDERED: PANT40IN4 IV (18:23)
[2023-02-18] MEDS ORDERED: BISAC5TA PO (18:23)
[2023-02-18] MEDS ORDERED: SIME80TA16 PO (18:23)
[2023-02-18] MEDS ORDERED: ONDA4INJ4 IV (18:23)
[2023-02-18] MEDS ORDERED: SIME40DR31 PR (18:23)
[2023-02-18] MEDS ORDERED: NYST10006 TOP (18:23)
[2023-02-18 19:39] LABS: CALCIUM LEVEL 8.3 MG/DL (8.3-10.6); CREATININE FOR GFR 1.41 MG/DL (0.70-1.30); GLOMERULAR FILTRATION RATE 50.6 (>35); POTASSIUM SERUM 4.4 MMOL/L (3.5-5.1)
== END 2023-02-18 19:50 | DRG 394 ==
LOC: M ED 13:34 → EDBD 13:34 → M ED INP 18:17 → ENRESERV 19:33 → M MS5PR 21:37
PROVIDERS: ADMIT Family Medicine; ATTEND Internal Medicine Nephrology
PROC: 30233N1 Transfusion of Nonautologous Red Blood Cells into Peripheral Vein, Percutaneous Approach (ICD-10-PCS; principal; 2023-02-12)
PROC: B246ZZZ Ultrasonography of Right and Left Heart (ICD-10-PCS; 2023-02-13)
PROC: 02HV33Z Insertion of Infusion Device into Superior Vena Cava, Percutaneous Approach (ICD-10-PCS; 2023-02-18)
DX: K59.39 Other megacolon (principal); N13.30 Unspecified hydronephrosis; N17.9 Acute kidney failure, unspecified; I87.1 Compression of vein; G95.9 Disease of spinal cord, unspecified; M48.54XA Collapsed vertebra, not elsewhere classified, thoracic region, initial encounter for fracture; D62 Acute posthemorrhagic anemia; E87.1 Hypo-osmolality and hyponatremia; E46 Unspecified protein-calorie malnutrition; D68.32 Hemorrhagic disorder due to extrinsic circulating anticoagulants; E11.42 Type 2 diabetes mellitus with diabetic polyneuropathy; E78.5 Hyperlipidemia, unspecified; K59.09 Other constipation; K59.2 Neurogenic bowel, not elsewhere classified; R59.9 Enlarged lymph nodes, unspecified; R60.0 Localized edema; I12.9 Hypertensive chronic kidney disease with stage 1 through stage 4 chronic kidney disease, or unspecified chronic kidney disease; E11.649 Type 2 diabetes mellitus with hypoglycemia without coma; N18.30 Chronic kidney disease, stage 3 unspecified; N31.9 Neuromuscular dysfunction of bladder, unspecified; K44.9 Diaphragmatic hernia without obstruction or gangrene; K40.90 Unilateral inguinal hernia, without obstruction or gangrene, not specified as recurrent; I48.91 Unspecified atrial fibrillation; I49.3 Ventricular premature depolarization; S30.1XXA Contusion of abdominal wall, initial encounter; Z20.822 Contact with and (suspected) exposure to COVID-19; Z79.899 Other long term (current) drug therapy; Z79.84 Long term (current) use of oral hypoglycemic drugs; Z79.4 Long term (current) use of insulin; Z66 Do not resuscitate